=== PATIENT | female | born 1965 ===

== ENCOUNTER 2016-09-09 22:22 | Emergency (ER) | payer BC ==
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
[2016-09-10 12:16] VITALS: BP 125/80; PULSE 90; RESP 16; TEMP 98.3; O2SAT 98
== END 2016-09-09 23:29 | disposition home or self-care (01) ==
LOC: ED 22:22
DX: N64.4 Mastodynia (principal); B02.9 Zoster without complications
CPT/HCPCS: 96372; 99283; J1885

== ENCOUNTER 2016-09-13 20:07 | Observation (INO) | payer BC ==
[2016-09-13] MEDS ORDERED: Morphine 4 mg/ml ISec IVP STA (21:23)
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
[2016-09-13 21:51] LABS: BASO # 0.05 K/mm3 (0.0-2.0); BASO % 0.7 % (0.0-3.0); EOS # 0.1 (0.0-0.7); EOS % 1.8 % (1.5-5.0); GRAN # 3.82 (1.4-6.5); GRAN % 53.1 % (50.0-68.0); HEMOGLOBIN 11.4 gm/dL (12.0-16.0); LYMPH # 2.8 (1.2-3.4); LYMPH % 39.1 % (22.0-35.0); MEAN CELL VOLUME 87.3 fL (80.0-105.0); MEAN CORPUSCULAR HEMOGLOBIN 29.5 pg (25.0-35.0); MEAN CORPUSCULAR HGB CONC 33.8 g/dl (31.0-37.0); MEAN PLATELET VOLUME 10.6 fl (7.0-11.0); MONO # 0.4 (0.1-0.6); MONO % 5.3 % (1.0-6.0); PLATELET COUNT 285 10^3/uL (120.0-450.0); RBC 3.86 10^6/uL (3.5-6.1); WHITE BLOOD COUNT 7.2 10^3/ul (4.5-11.0)
[2016-09-13 22:39] LABS: ALB/GLOB RATIO 1.1 (1.1-1.8); ALBUMIN 3.2 g/dL (3.0-4.8); ALT/SGPT 14 U/L (7-56); AST/SGOT 27 U/L (15-39); BLOOD UREA NITROGEN 12 mg/dL (7-21); GFR AFRICAN-AMERICAN > 60; GFR NON-AFRICAN AMERICAN > 60; MAGNESIUM 1.4 mg/dL (1.7-2.2)
[2016-09-13 22:50] LABS: TROPONIN I < 0.01 ng/mL
--- NOTE | 2016-09-14 07:47 | RAD ---
HISTORY: cp COMPARISON: No prior. TECHNIQUE: Chest PA and lateral FINDINGS: LUNGS: No active pulmonary disease. PLEURA: No significant pleural effusion identified. No pneumothorax apparent. CARDIOVASCULAR: Normal. OSSEOUS STRUCTURES: No significant abnormalities. VISUALIZED UPPER ABDOMEN: Normal. OTHER FINDINGS: None. IMPRESSION: No active disease.
[2016-09-14 09:03] LABS: HDL CHOLESTEROL 47 mg/dL (29-60)
[2016-09-14 09:14] LABS: LDL CHOLESTEROL 110 mg/dL (0-129)
[2016-09-14 09:16] LABS: TROPONIN I < 0.01 ng/mL
[2016-09-14] MEDS ORDERED: Potassium Chloride 20 mEq ER Tab PO ONE (10:02)
[2016-09-14] MEDS: Morphine 2 mg/ml ISec IVP PRN ×2 (10:19→20:23)
[2016-09-14] MEDS ORDERED: Magnesium Sulfate 2 GM in Sodium Chloride 0.9% 100 ML IVPB ONE (11:04)
--- NOTE | 2016-09-14 12:31 | CARD ---
APPROVED REPORT EKG Measurement Heart [id number] <Conclusion> Normal sinus rhythm Normal ECG
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
[2016-09-15 07:25] LABS: ALB/GLOB RATIO 1.1 (1.1-1.8); ALT/SGPT 24 U/L (7-56); AST/SGOT 31 U/L (15-39); BLOOD UREA NITROGEN 13 mg/dL (7-21); CALCIUM 9.5 mg/dL (8.4-10.5); GFR AFRICAN-AMERICAN > 60; GFR NON-AFRICAN AMERICAN > 60
[2016-09-15 07:43] LABS: BASO # 0.03 K/mm3 (0.0-2.0); BASO % 0.4 % (0.0-3.0); EOS # 0.2 (0.0-0.7); GRAN # 3.93 (1.4-6.5); GRAN % 53.5 % (50.0-68.0); HEMOGLOBIN 11.4 gm/dL (12.0-16.0); LYMPH # 2.7 (1.2-3.4); LYMPH % 37.3 % (22.0-35.0); MEAN CELL VOLUME 88.7 fL (80.0-105.0); MEAN CORPUSCULAR HEMOGLOBIN 29.3 pg (25.0-35.0); MEAN PLATELET VOLUME 10.4 fl (7.0-11.0); MONO # 0.5 (0.1-0.6); MONO % 6.8 % (1.0-6.0); PLATELET COUNT 258 10^3/uL (120.0-450.0); RBC 3.89 10^6/uL (3.5-6.1); RED CELL DISTRIBUTION WIDTH 12.8 % (11.5-14.5); WHITE BLOOD COUNT 7.4 10^3/ul (4.5-11.0)
[2016-09-15 09:32] VITALS: O2SAT 99
[2016-09-15] MEDS ORDERED: Iodixanol 320 MG/ML 100 ML BOTTLE IV ONE (09:34)
[2016-09-15] MEDS ORDERED: Enoxaparin 40 mg Syringe SC SCH (10:00)
--- NOTE | 2016-09-15 11:03 | CT ---
PROCEDURE: CT Chest with contrast (Pulmonary Angiogram) HISTORY: d.dimer elevated r/o pe COMPARISON: None available. TECHNIQUE: Axial computed tomography images were obtained of the chest in the pulmonary arterial phase of enhancement. Coronal and sagittal reformatted images were created and reviewed. Intravenous contrast dose: Visipaque 320, 100 cc Radiation dose: Total exam DLP = 331 mGy-cm. This CT exam was performed using one or more of the following dose reduction techniques: Automated exposure control, adjustment of the mA and/or kV according to patient size, and/or use of iterative reconstruction technique. FINDINGS: PULMONARY ARTERIES: Unremarkable. No pulmonary embolism. AORTA: No acute findings. No thoracic aortic aneurysm. LUNGS: Bilateral basilar dependent atelectasis identified. . No pulmonary consolidation. 5.8 mm subpleural nodule identified at the right middle lobe and image 62 series 5 and image 41, there is a subpleural 2.5 mm nodule at the left upper lobe laterally. There is a probable calcified granuloma identified at the left upper lobe on image 45 as well. PLEURAL SPACES: Unremarkable. No effusion or pneuomothorax. HEART: Unremarkable. No cardiomegaly. No significant pericardial effusion. LYMPH NODES: No lymphadenopathy. BONES, CHEST WALL: Unremarkable. No fracture or destructive lesion OTHER FINDINGS: Unremarkable. IMPRESSION: No CT evidence of pulmonary embolus. Bilateral basilar dependent atelectasis identified. Two sub cm subpleural nodules identified in the exam as discussed above with a probable additional calcified granuloma at the left upper lobe. Impression follow-up chest is advised 12 months to demonstrate stability of these nodules. Lung rads 2.
[2016-09-15] MEDS: Morphine 2 mg/ml ISec IVP PRN (11:16)
--- NOTE | 2016-09-15 16:07 | CARD ---
APPROVED REPORT EXAM: Two-dimensional and M-mode echocardiogram with Doppler and color Doppler. INDICATION R07.9 2D DIMENSIONS Left Atrium (2D)2.6 (1.6-4.0cm)IVSd0.9 (0.7-1.1cm) LVDd3.2 (3.9-5.9cm)PWd0.9 (0.7-1.1cm) LVDs2.2 (2.5-4.0cm)FS (%) 30.5 % LVEF (%)59.3 (>50%) M-Mode DIMENSIONS Aortic Root2.80 (2.2-3.7cm)Aortic Cusp Exc.1.60 (1.5-2.0cm) Aortic Valve AoV Peak Rekqqoib486.0cm/Naya Peak GR.7mmHg Mitral Valve MV E Vpdbvjgy71.9cm/sMV A Rlrijoyk80.5cm/sE/A ratio0.9 TDI E/Lateral E'0.0E/Medial E'0.0 Tricuspid Valve TR Peak [id number]/sRAP [id number] Peak Gr.16mmHg [id number] LEFT VENTRICLE The left ventricle is normal size. There is normal left ventricular wall thickness. The left ventricular function is normal.EF-60-65% There is normal LV segmental wall motion. The left ventricular diastolic function is normal. No left ventricle thrombus noted on this study. There is no ventricular septal defect visualized. There is no left ventricular aneurysm. There is no mass noted in the left ventricle. RIGHT VENTRICLE The right ventricle is normal size. There is normal right ventricular wall thickness. The right ventricular systolic function is normal. ATRIA The left atrium size is normal. The right atrium size is normal. The interatrial septum is intact with no evidence for an atrial septal defect. AORTIC VALVE The aortic valve is thickened but opens well. The aortic valve is moderately sclerotic. No aortic regurgitation is present. There is no aortic valvular stenosis. There is no aortic valvular vegetation. MITRAL VALVE The mitral valve is thickened but opens well. Mitral regurgitation is trace. There is no mitral valve stenosis. There is no evidence of mitral valve prolapse. TRICUSPID VALVE The tricuspid valve leaflets are thickened , but open well. There is trace to mild tricuspid regurgitation.RVSP-26 mmof hg. There is no tricuspid valve stenosis. There is no tricuspid valve prolapse or vegetation. PULMONIC VALVE The pulmonic valve is borderline thickened. There is trace to mild pulmonic valvular regurgitation. There is no pulmonic valvular stenosis. GREAT VESSELS The aortic root is normal in size. The ascending aorta is normal in size. The pulmonary artery is normal. The IVC is normal in size and collapses >50% with inspiration. PERICARDIAL EFFUSION There is no pleural effusion. There is no pericardial effusion. <Conclusion> Normal chamber Size. EF-60-65% Mitral regurgitation is trace. There is trace to mild tricuspid regurgitation.RVSP-26 mmof hg. There is trace to mild pulmonic valvular regurgitation. The IVC is normal in size and collapses >50% with inspiration. There is no pericardial effusion. No Vegetatiobn or thrombus noted.
[2016-09-15] MEDS ORDERED: Pneumococcal 23-Valent Vaccine IM ONE (18:33)
--- NOTE | 2016-09-15 19:43 | PN ---
DATE OF SERVICE: 09/15/2016 SUBJECTIVE: Cardiac evaluation, chest pain. The patient denies any chest pain, denies any *------*. The patient is currently in #[id number], bed #1. PHYSICAL EXAMINATION: VITAL SIGNS: Temperature afebrile, heart rate 90, blood pressure 112/74. HEENT: PERRLA, intact. NECK: Supple. No carotid bruit. No thyromegaly. CHEST: Clear to auscultation. HEART: S1 and S2, regular. ABDOMEN: Soft. EXTREMITIES: Clubbing and cyanosis negative. LABORATORY DATA: Blood workup as follows, WBC 11.5, hemoglobin 9.4, hematocrit 34.5, platelet count 258. Chemistry shows sodium 139, potassium 4.4, chloride 103, carbon dioxide 27, anion gap of 13, BUN 30, and, creatinine 0.9. Total protein is 7.7, albumin 4, albumin globulin ratio 1.1. IMPRESSION: Chest pain, atypical, musculoskeletal, tenderness underneath the breast. No evidence of acute coronary syndrome. No evidence of acute myocardial infarction. Troponin remains negative. History of rosado in the past. CT chest shows no evidence of pulmonary embolism, but bilateral depended atelectasis noted, 2 sub pleural nodules identified, probably additional calcified granuloma. Followup chest in 12 months recommended. Echo pending. RECOMMENDATION: Atypical chest pain given the multiple risk factors, I suggest a stress test as outpatient in 2 weeks, we will follow the echo. Possible discharge. We will sign off and would like to follow p.r.n. The patient has also shingles at the back and the pain is radiating to the front. The patient is currently on Valtrex for shingle. We will schedule a stress test in 4 weeks after the shingles subsides and we will sign off. We would like to follow p.r.n. The patient has already been scheduled for a stress in [address] Garcia for providing the opportunity in taking care of the patient. Joaquina Puentes MD cc: Dr. Radha Egan
[2016-09-15 19:50] VITALS: BP 140/80; PULSE 82; RESP 20; TEMP 98.2
--- NOTE | 2016-09-15 21:20 | CP.PCM.DIS ---
Provider - Provider Date of Admission: 09/13/16 23:58 Attending physician: Radha Egan MD Time Spent in preparation of Discharge (in minutes): 30 Diagnosis - Discharge Diagnosis (1) Chest pain Status: Acute (2) Intractable pain Status: Acute (3) Shingles Status: Acute (4) Migraine Status: Chronic (5) Hypokalemia Status: Acute Hospital Course - Lab Results Lab Results: Most Recent Lab Values WBC 7.4 10^3/ul (4.5-11.0) 09/15/16 05:50 RBC 3.89 10^6/uL (3.5-6.1) 09/15/16 05:50 Hgb 11.4 gm/dL (12.0-16.0) L 09/15/16 05:50 Hct 34.5 % (36.0-48.0) L 09/15/16 05:50 MCV 88.7 fL (80.0-105.0) 09/15/16 05:50 MCH 29.3 pg (25.0-35.0) 09/15/16 05:50 MCHC 33.0 g/dl (31.0-37.0) 09/15/16 05:50 RDW 12.8 % (11.5-14.5) 09/15/16 05:50 Plt Count 258 10^3/uL (120.0-450.0) 09/15/16 05:50 MPV 10.4 fl (7.0-11.0) 09/15/16 05:50 Gran % 53.5 % (50.0-68.0) 09/15/16 05:50 Lymph % (Auto) 37.3 % (22.0-35.0) H 09/15/16 05:50 Arthur % (Auto) 6.8 % (1.0-6.0) H 09/15/16 05:50 Eos % (Auto) 2.0 % (1.5-5.0) 09/15/16 05:50 Baso % (Auto) 0.4 % (0.0-3.0) 09/15/16 05:50 Gran # 3.93 (1.4-6.5) 09/15/16 05:50 Lymph # 2.7 (1.2-3.4) 09/15/16 05:50 Arthur # 0.5 (0.1-0.6) 09/15/16 05:50 Eos # 0.2 (0.0-0.7) 09/15/16 05:50 Baso # 0.03 K/mm3 (0.0-2.0) 09/15/16 05:50 D-Dimer, Quantitative 1.06 mg/L FEU (0-0.50) H 09/14/16 21:30 Sodium 139 mmol/L (132-148) 09/15/16 05:50 Potassium 4.4 mmol/L (3.6-5.0) 09/15/16 05:50 Chloride 103 mmol/L (98-107) 09/15/16 05:50 Carbon Dioxide 27 mmol/L (21-33) 09/15/16 05:50 Anion Gap 13 (10-20) 09/15/16 05:50 BUN 13 mg/dL (7-21) 09/15/16 05:50 Creatinine 0.9 mg/dL (0.5-1.4) 09/15/16 05:50 Est GFR ( Amer) > 60 09/15/16 05:50 Est GFR (Non-Af Amer) > 60 09/15/16 05:50 POC Glucose (mg/dL) 65 mg/dL (65-110) 09/14/16 11:13 Random Glucose 88 mg/dL (70-110) 09/15/16 05:50 Calcium 9.5 mg/dL (8.4-10.5) 09/15/16 05:50 Magnesium 1.4 mg/dL (1.7-2.2) L 09/13/16 22:20 Total Bilirubin 0.5 mg/dL (0.2-1.3) 09/15/16 05:50 AST 31 U/L (15-39) 09/15/16 05:50 ALT 24 U/L (7-56) 09/15/16 05:50 Alkaline Phosphatase 73 U/L (38-133) 09/15/16 05:50 Lactate Dehydrogenase 354 U/L (333-699) 09/14/16 08:30 Total Creatine Kinase 71 U/L (35-230) 09/14/16 08:30 Troponin I < 0.01 ng/mL 09/14/16 08:30 Total Protein 7.7 g/dL (5.8-8.3) 09/15/16 05:50 Albumin 4.0 g/dL (3.0-4.8) 09/15/16 05:50 Globulin 3.7 gm/dL 09/15/16 05:50 Albumin/Globulin Ratio 1.1 (1.1-1.8) 09/15/16 05:50 Triglycerides 137 mg/dL (35-160) 09/14/16 08:30 Cholesterol 205 mg/dL (130-200) H 09/14/16 08:30 LDL Cholesterol Direct 110 mg/dL (0-129) 09/14/16 08:30 HDL Cholesterol 47 mg/dL (29-60) 09/14/16 08:30 TSH 3rd Generation 4.03 mIU/mL (0.46-4.68) 09/14/16 08:30 - Hospital Course Hospital Course: still has pain ctchest-negative for PE,Calicifyed nodule, needs rpt CT imaging 12 months labs reviwed skin lesion drying up. Discharge Exam - Additional Findings Additional findings: Constitutional Appears: not In Acute Distress - Head Exam Head Exam: ATRAUMATIC, NORMAL INSPECTION - Eye Exam Eye Exam: EOMI, Normal appearance, PERRL - ENT Exam ENT Exam: Mucous Membranes Dry - Neck Exam Neck exam: Positive for: Normal Inspection. Negative for: Lymphadenopathy - Respiratory Exam Respiratory Exam: Clear to Auscultation Bilateral, NORMAL BREATHING PATTERN. absent: Wheezes - Cardiovascular Exam Cardiovascular Exam: REGULAR RHYTHM, +S1, +S2. absent: Systolic Murmur - GI/Abdominal Exam GI & Abdominal Exam: Hypoactive Bowel Sounds, Soft. absent: Tenderness - Extremities Exam Extremities exam: Positive for: normal inspection, pedal pulses present. Negative for: pedal edema - Back Exam Back exam: absent: paraspinal tenderness - Neurological Exam Neurological exam: Alert, CN II-XII Intact, Oriented x3 - Psychiatric Exam Psychiatric exam: Normal Affect, Normal Mood - Skin Skin Exam: Intact except erythematous papular rash on left scapular area in groups,not vesicular ,tender chest wall tenderness scar area b\l inframammory Discharge Plan - Discharge Medications Prescriptions: Docusate [Colace] 100 mg PO DAILY PRN #14 cap PRN Reason: Constipation Pregabalin [Lyrica] 50 mg PO HS PRN #30 cap PRN Reason: Pain, Mild (1-3) Methylprednisolone [Medrol Dose Pack (21 tabs)] 4 mg PO DAILY #21 mg oxyCODONE/Acetaminophen [Percocet 5/325 mg Tab] 1 ea PO TID PRN #15 tab PRN Reason: Pain, Severe (8-10) - Follow Up Plan Condition: FAIR Disposition: HOME/ ROUTINE Instructions: Chest Pain (DC), Shingles (DC) Additional Instructions: - As per Dr. Egan you can go back to work on Monday, full duty. - follow up in 12 months for a chest cat scan. - follow up with your primary physician on August at 1:00pm. - make sure you take the medications you are going home with as directed.
== END 2016-09-15 19:48 | disposition home or self-care (01) ==
LOC: ED 20:07 → ERH 23:58 → 2RNO 09-14 05:07 → 3RSO 09-14 16:02
PROVIDERS: ADMIT Internal Medicine; ATTEND Internal Medicine
DX: B02.9 Zoster without complications (principal); N64.4 Mastodynia; R07.9 Chest pain, unspecified; G43.909 Migraine, unspecified, not intractable, without status migrainosus; E87.6 Hypokalemia; Z23 Encounter for immunization
CPT/HCPCS: 36415; 71020; 71275; 80053; 80061; 82550; 82948; 83615; 83735; 84443; 84484; 85025; 85378; 90732; 93005; 93306; 96374; 99285; G0009; G0378; J1650; J1885; J2270; J3475; Q9967